=== PATIENT | male | born 1985 | race Two or more races ===

== ENCOUNTER 2018-09-01 07:44 | Emergency (ER) | payer OTHER ==
[2018-09-01 07:59] VITALS: BP 137/70; PULSE 71; TEMP 98.2; BMI 32.3
--- NOTE | 2018-09-01 09:26 | PDOC ---
History of Present Illness - General Chief Complaint: Sore Throat Stated Complaint: SORETHROAT SYMPTOMS Time Seen by Provider: 09/01/18 08:37 History Source: Patient - History of Present Illness Initial Comments: 09/01/18 18:30 32 year old male with no significant medical or surgical history complaining of throat pain x 7 days. REports eating fish and feels as if a bone is stuck in his throat. Denies difficulty swallowing, breathing or speaking. States pain is intermittent Timing/Duration: 1 week Severity: mild Modifying Factors: improves with: other (no intervention) Aspirin Received prior to arrival: Yes: no aspirin today Asa Contraindications(Core Measure): No: Allergy Beta Troy Contraindications(Core Measure): Yes: Not Prescribed Beta Troy Given by EMS(Core Measure): No Beta Troy Taken at Home(Core Measure): No Beta [place] Not Indicated at this Time(Core Measure): No Past History - Travel Traveled outside of the country in the last 30 days: No Close contact w/someone who was outside of country & ill: No - Past Medical History Allergies/Adverse Reactions: Allergies Allergy/AdvReac Type Severity Reaction Status Date / Time No Known Allergies Allergy Verified 09/01/18 07:48 Home Medications: Ambulatory Orders NK [No Known Home Medication] 09/01/18 COPD: No - Immunization History Immunization Up to Date: Yes - Suicide/Smoking/Psychosocial Hx Smoking History: Never smoked Hx Alcohol Use: No Drug/Substance Use Hx: No Review of Systems - Review of Systems Able to Perform ROS?: Yes Is the patient limited [place] proficient: No Constitutional: No: Chills, Fever, Loss of Appetite HEENTM: Yes: Throat Pain. No: Ear Pain, Ear Discharge, Nose Congestion Respiratory: No: Cough, Orthopnea, Wheezing Cardiac (ROS): No: Edema, Palpitations, Syncope ABD/GI: No: Constipated, Indigestion : No: Discharge, Incontinence Musculoskeletal: No: Back Pain, Gout, Joint Pain, Muscle Pain, Neck Pain Integumentary: No: Dryness, Erythema, Flushing Neurological: No: Numbness, Paresthesia, Weakness Psychiatric: No: Stressors *Physical Exam - Vital Signs Last Vital Signs Temp Pulse Resp BP Pulse Ox 98.2 F 71 16 137/70 97 09/01/18 07:49 09/01/18 07:49 09/01/18 07:49 09/01/18 07:49 09/01/18 07:49 - Physical Exam General Appearance: Yes: Nourished, Appropriately Dressed HEENT: positive: DAVON, TMs Normal, Pharynx Normal. negative: Muffled/Hoarse voice, Pharyngeal Erythema, Tonsillar Exudate, Tonsillar Erythema Neck: positive: Supple. negative: Lymphadenopathy (R), Lymphadenopathy (L), Tender lateral, Tender midline Respiratory/Chest: positive: Lungs Clear, Normal Breath Sounds. negative: Accessory Muscle Use, Stridor Cardiovascular: positive: Regular Rhythm, Regular Rate. negative: Tachycardia Extremity: positive: Normal Capillary Refill Integumentary: positive: Normal Color Moderate Sedation - Procedure Monitoring Vital Signs: Procedure Monitoring Vital Signs Temperature 98.2 F 09/01/18 07:49 Pulse Rate 71 09/01/18 07:49 Respiratory Rate 16 09/01/18 07:49 Blood Pressure 137/70 09/01/18 07:49 O2 Sat by Pulse Oximetry (%) 97 09/01/18 07:49 ED Treatment Course - RADIOLOGY Radiology Studies Ordered: Category Date Time Status NECK SOFT TISSUE [RAD] Stat Radiology 09/01/18 08:55 Completed Medical Decision Making - Medical Decision Making 09/01/18 18:33 32 year old male with no significant medical or surgical history complaining of throat pain x 7 days. Plan soft tissue xray xray negative *DC/Admit/Observation/Transfer Diagnosis at time of Disposition: Pain in throat - Discharge Dispostion Disposition: HOME Condition at time of disposition: Good - Referrals Referrals: Chante Feldman MD [Primary Care Provider] - - Patient Instructions Printed Discharge Instructions: Sore Throat Additional Instructions: Please return to emergency for shortness of breath - Post Discharge Activity Forms/Work/School Notes: Back to Work
== END 2018-09-01 09:40 | disposition home or self-care (01) ==
LOC: JERFT 07:44 → JER 07:44 → JERFT 09:40
DX: R07.0 Pain in throat (principal)
CPT/HCPCS: 70360-TC-FY; 99281-25

== ENCOUNTER 2022-01-28 22:10 | Emergency (ER) | payer OTHER ==
[2022-01-28 22:24] VITALS: BP 153/93; PULSE 61; RESP 20; TEMP 98.2; BMI 31.6
== END 2022-01-29 00:37 | disposition home or self-care (01) ==
LOC: JERFT 22:10 → JER 22:10
DX: M79.645 Pain in left finger(s) (principal)
CPT/HCPCS: 73140-TC-LT-FY; 99284-25